=== PATIENT | female | born 1995 | race Caucasian/White ===

== ENCOUNTER 2016-09-01 19:16 | Emergency (ER) | payer OTHER ==
[~2016-09-01] VITALS: Ht 160 cm; Wt 50.0 kg
[2016-09-01 19:17] VITALS: BP 111/66; PULSE 93; RESP 16; TEMP 99.6; O2SAT 100
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
[2016-09-01] MEDS ORDERED: IBUPROFEN 600 MG TAB PO ONE (20:00)
[2016-09-01] MEDS ORDERED: CYCLOBENZAPRINE HCL 10 MG TAB PO ONE (20:00)
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
[2016-09-01] MEDS ORDERED: DICL50TA3 PO (20:20)
[2016-09-01] MEDS ORDERED: CYCL1TAB29 PO (20:20)
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
[2016-09-01] MEDS ORDERED: CEPH500C PO (21:42)
[2016-09-01] MEDS ORDERED: CEPHALEXIN MONOHYDRATE 500 MG CAP PO ONE (22:00)
== END 2016-09-01 22:02 | disposition home or self-care (01) ==
LOC: NEPD 19:16
DX: S13.4XXA Sprain of ligaments of cervical spine, initial encounter (principal); N39.0 Urinary tract infection, site not specified; V49.49XA Driver injured in collision with other motor vehicles in traffic accident, initial encounter; Y92.411 Interstate highway as the place of occurrence of the external cause
CPT/HCPCS: 72040; 99284